=== PATIENT | male | born 1990 | race African-American/Black ===

== ENCOUNTER 2023-08-27 09:21 | Emergency (ER) | payer MEDICAID ==
[~2023-08-27] VITALS: Ht 172.7 cm; Wt 70.0 kg
[~2023-08-27 09:21] MED LIST: CLIN-194 MT; HYDR-4001 PO; HYDR-4346 MT
[2023-08-27 09:32] VITALS: O2SAT 99
[2023-08-27 09:40] VITALS: TEMP 97.9
[2023-08-27] MEDS: DIPHENHYDRAMINE 50MG/ML VIAL IV ONE (11:12)
[2023-08-27] MEDS: PANTOPRAZOLE SODIUM 40 MG/VIAL IV STA (11:12)
[2023-08-27] MEDS: HALOPERIDOL LACTATE 5MG/ML VIAL IM ONE (11:13)
[2023-08-27] MEDS: SODIUM CHLORIDE 0.9% 1,000 ML IV ONE ×2 (11:19→14:11)
[2023-08-27 11:24] LABS: HEMOGLOBIN. 13.7 g/dL (14.0-18.0); MEAN CORPUSCULAR HEMOGLOBIN 28.7 pg (28.0-32.0); MEAN CORPUSCULAR HGB CONC 32.7 g/dL (31.0-37.0); MEAN CORPUSCULAR VOLUME 87.7 fL (80.0-94.0); MEAN PLATELET VOLUME 9.1 fl (7.4-10.4); PLATELET 247 x1000/uL (130-400); RED BLOOD CELL COUNT 4.78 mill/uL (4.7-6.1); RED CELL DISTRIBUTION WIDTH 16.6 % (11.6-14.6); WHITE BLOOD COUNT 9.3 x1000/uL (4.5-11.0)
[2023-08-27 11:28] LABS: DIFFERENTIAL COMMENT 1
[2023-08-27 11:33] LABS: INR 0.9; PROTHROMBIN TIME 10.3 sec (9.6-11.0)
[2023-08-27 11:34] LABS: CHLORIDE 104 mEq/L (98-107); POTASSIUM 4.1 mEq/L (3.5-5.1); SODIUM 137 mEq/L (136-145)
[2023-08-27 11:35] LABS: CALCIUM 10.2 mg/dL (8.7-10.4); CARBON DIOXIDE 23 mEq/L (21-32)
[2023-08-27 11:40] LABS: CREATININE 1.1 mg/dL (0.6-1.3); GLUCOSE 309 mg/dL (70-105); UREA NITROGEN BLOOD 9 mg/dL (9-23)
[2023-08-27 11:42] LABS: ALANINE AMINOTRANSFERASE 29 IU/L (10-49); ASPARTATE AMINOTRANSFERASE 24 IU/L (<34); BILIRUBIN DIRECT 0.2 mg/dL (<=3.0)
[2023-08-27 11:43] LABS: BILIRUBIN TOTAL 0.4 mg/dL (0.1-1.0); PROTEIN TOTAL 7.6 g/dL (6.0-8.3)
[2023-08-27 11:47] LABS: ETHANOL BLOOD < 10 mg/dL (<10)
[2023-08-27 12:27] LABS: PLATELET ESTIMATE NORMAL
[2023-08-27 13:27] LABS: CLARITY URINE CLEAR (CLEAR); COLOR URINE YELLOW (YELLOW); GLUCOSE URINE 3+ (NEGATIVE); KETONES URINE 3+ (NEGATIVE); LEUKOCYTE ESTERASE URINE NEGATIVE (NEGATIVE); NITRITE URINE NEGATIVE (NEGATIVE); OCCULT BLOOD URINE NEGATIVE (NEGATIVE); PH URINE 7.5 (4.5-8.0); PROTEIN URINE TRACE (NEGATIVE); SPECIFIC GRAVITY URINE 1.044 (1.005-1.030); UROBILINOGEN URINE 0.2 E.U./dL (0.2-1.0)
[2023-08-27] MEDS ORDERED: PANT40TA51 MT (13:48)
[2023-08-27 13:50] VITALS: BP 120/69; PULSE 60; RESP 24
[2023-08-27 13:50] LABS: BACTERIA URINE RARE; RBC URINE NONE SEEN /hpf (0-2); SQUAMOUS EPITHELIAL CELL URINE FEW /lpf (RARE/1+); WBC URINE 0-2 /hpf (0-2); YEAST URINE NONE SEEN
[2023-08-27 14:10] LABS: *AMPHETAMINES SCREEN URINE NEGATIVE (NEGATIVE)
[2023-08-27 14:11] LABS: *BARBITURATES SCREEN URINE NEGATIVE (NEGATIVE); *BENZODIAZEPINES SCREEN URINE NEGATIVE (NEGATIVE); *COCAINE SCREEN URINE NEGATIVE (NEGATIVE); CANNABINOID URINE SCREEN PRESUMPTIVE POSITIVE (NEGATIVE); ECSTASY MDMA SCREEN URINE NEGATIVE (NEGATIVE); METHADONE URINE SCREEN NEGATIVE (NEGATIVE); OPIATES URINE SCREEN NEGATIVE (NEGATIVE); PHENCYCLIDINE URINE SCREEN NEGATIVE (NEGATIVE)
== END 2023-08-27 14:33 | disposition home or self-care (01) ==
LOC: ER 09:21
DX: R11.2 Nausea with vomiting, unspecified (principal); K29.70 Gastritis, unspecified, without bleeding; J45.909 Unspecified asthma, uncomplicated; E11.9 Type 2 diabetes mellitus without complications; Z79.899 Other long term (current) drug therapy; Z88.0 Allergy status to penicillin
CPT/HCPCS: 80076; 80305; 80048; 81003; 80320; 83690; 85025; 85610; 36415; 96372; 96374; 96375; 99284; J1200; J1630; J2470; J7030; G0480

== ENCOUNTER 2024-01-11 07:07 | Emergency (ER) | payer MEDICAID ==
[~2024-01-11] VITALS: Ht 165.1 cm; Wt 59.4 kg
[~2024-01-11 07:07] MED LIST changes: +INSLIS SUBCUT; +LEVO750T68 MT; +METO-293 MT; +METR-167 MT; +PANT40TA51 MT
[2024-01-11 07:08] VITALS: BP 146/98; PULSE 55; RESP 16; TEMP 97.9; O2SAT 98
== END 2024-01-11 09:54 | disposition left against medical advice (07) ==
LOC: ER 07:21
DX: R07.9 Chest pain, unspecified (principal); Z53.21 Procedure and treatment not carried out due to patient leaving prior to being seen by health care provider

== ENCOUNTER 2024-02-07 20:07 | Emergency (ER) | payer MEDICAID ==
[~2024-02-07] VITALS: Ht 167.6 cm; Wt 60.0 kg
[2024-02-07 20:11] VITALS: BP 142/94; PULSE 98; RESP 16; TEMP 100; O2SAT 96
[2024-02-08] MEDS: ONDANSETRON 4MG ODT PO ONE (00:02)
[2024-02-08] MEDS ORDERED: ACETAMINOPHEN 325MG TABLET PO ONE (00:15)
== END 2024-02-08 01:13 | disposition left against medical advice (07) ==
LOC: ER 20:07
DX: R10.84 Generalized abdominal pain (principal); R11.2 Nausea with vomiting, unspecified; J45.909 Unspecified asthma, uncomplicated; E11.9 Type 2 diabetes mellitus without complications; F19.90 Other psychoactive substance use, unspecified, uncomplicated; Z98.890 Other specified postprocedural states; Z88.0 Allergy status to penicillin; Z88.6 Allergy status to analgesic agent
CPT/HCPCS: 99283; Z7610 ×2; Q0162

== ENCOUNTER 2024-05-28 22:43 | Emergency (ER) | payer MEDICAID ==
[~2024-05-28] VITALS: Ht 167.6 cm; Wt 67.0 kg
[2024-05-28 22:54] VITALS: O2SAT 97
[2024-05-28 22:57] VITALS: TEMP 36.8
[2024-05-29] MEDS ORDERED: ACET-2708 MT (00:14)
[2024-05-29 00:52] VITALS: BP 109/67; PULSE 69; RESP 18; O2SAT 97
== END 2024-05-29 00:53 | disposition home or self-care (01) ==
LOC: ER 22:43
DX: M79.601 Pain in right arm (principal); J45.909 Unspecified asthma, uncomplicated; E11.9 Type 2 diabetes mellitus without complications; Z98.890 Other specified postprocedural states; Z79.899 Other long term (current) drug therapy; Z88.0 Allergy status to penicillin; Z88.6 Allergy status to analgesic agent
CPT/HCPCS: 29240; 73060; 99283; A4565